=== PATIENT | female | born 1985 | race Caucasian/White ===

== ENCOUNTER 2017-03-23 14:50 | Emergency (ER) | payer MEDICAID ==
--- NOTE | 2017-03-23 15:33 | ER NURSING DOCUMENTATION ---
Nurse's Notes [facility] Name:Jackie Ruiz Age:32 yrs Sex:Female :1985 Arrival Date:03/23/2017 Time:14:50 Bed5 Private MD: Diagnosis:Viral Upper Respiratory Infection (URI) Presentation: 03/23 14:53 Acuity: ROBERT 3 rh 15:01 Presenting complaint: Patient states: Cough. Transition of care: Home. Notified ED lp Physician of Dr. Abreu notified. 15:01 Method Of Arrival: Private Vehicle lp Triage Assessment: 15:04 General: Appears in no apparent distress, Behavior is appropriate for age. Pain: Denies lp pain. Respiratory: Airway is patent Breath sounds are clear bilaterally. Reports cough that is productive, pain with cough since 4 days ago. Historical: - Allergies: Augmentin; Methotrexate (Anti-Rheumatic); - Home Meds: 1. TriNessa (28) 0.18/0.215/0.25 mg-35 mcg (28) oral tab 1 tab once daily 2. ibuprofen 800 mg oral tab 1 tab Once per day 3. hydrocodone-acetaminophen 5-325 mg oral tab 1 tab Daily for Pain 4. loratadine 10 mg oral TbDL 1 tab once daily 5. multivitamin oral tab - PMHx: Chronic back pain; Seasonal Allergies; - Tetanus: < 10 years. - Ebola Screening: : Patient negative for fever greater than or equal to 101.5 degrees Fahrenheit, and additional compatible Ebola Virus Disease symptoms. Patient denies exposure to infectious person. Patient denies travel to an Ebola-affected area in the 21 days before illness onset. . - Immunization history: Flu Vaccine None. - Social history: Smoking status: Patient states was never smoker of tobacco. Screenin:06 Infectious Disease Risk None. Abuse screen: Denies threats or abuse. Denies injuries lp from another. Nutritional screening: No deficits noted. Assessment: 15:05 Cardiovascular: No deficits noted. Heart tones S1 S2. Respiratory: Breath sounds are lp clear bilaterally. Vital Signs: 15:05 BP 124 / 91; Pulse 106; Resp 14; Temp 98.1(TE); Pulse Ox 96% on R/A; Weight 95.25 kg; lp Height 5 ft. 5 in. (165.10 cm); Pain 4/10; 15:05 Body Mass Index 34.95 (95.25 kg, 165.10 cm) lp ED Course: 14:51 Patient arrived in ED. dp 14:53 Triage completed. rh 14:53 Adri Connell is Primary Nurse. rh 14:57 Roger Abreu MD is Attending Physician. tl1 15:[address] Abreu notified. lp 15:06 Valuables Remains with patient Patient has correct armband on for positive lp identification. Bed in low position. Call light in reach. Administered Medications: No medications were administered Outcome: 15:18 Discharge ordered by . tl1 15:31 Discharged to home ambulatory. lp 15:31 Condition: good 15:31 Instructed on discharge instructions, follow up and referral plans. medication usage. 15:32 Patient left the ED. lp 03/25 13:17 Discharge F/U Call: Unable to reach: no answer Signatures: Carolyn Bonilla RN RN Roger Abreu MD MD tl1 Adri Connell Stacie Downey dp
== END 2017-03-23 15:32 | disposition home or self-care (01) ==
LOC: ER 14:50
DX: J06.9 Acute upper respiratory infection, unspecified (principal)
CPT/HCPCS: 86403; 87081; 99281